=== PATIENT | male | born 2000 | race African-American/Black ===

== ENCOUNTER 2021-05-01 02:27 | Emergency (ER) | payer MEDICAID ==
[~2021-05-01] VITALS: Ht 193 cm; Wt 114.0 kg
[2021-05-01] MEDS ORDERED: ONDANSETRON 4MG ODT PO ONE (03:00)
[2021-05-01] MEDS: ACETAMINOPHEN 325MG TABLET PO ONE ×2 (03:13→03:26)
[2021-05-01] MEDS ORDERED: SODIUM CHLORIDE 0.9% 1,000 ML IV ONE (04:15)
[2021-05-01 04:37] LABS: HEMATOCRIT. 43.5 % (42.0-52.0); HEMOGLOBIN. 14.5 g/dL (14.0-18.0); MEAN CORPUSCULAR HEMOGLOBIN 26.4 pg (28.0-32.0); MEAN CORPUSCULAR VOLUME 79.2 fL (80.0-94.0); MEAN PLATELET VOLUME 8.8 fl (7.4-10.4); PLATELET 225 x1000/uL (130-400); RED BLOOD CELL COUNT 5.49 mill/uL (4.7-6.1); RED CELL DISTRIBUTION WIDTH 13.5 % (11.6-14.6)
[2021-05-01 04:51] LABS: CHLORIDE 106 mEq/L (98-107)
[2021-05-01] MEDS ORDERED: ACET-2708 MT (05:01)
[2021-05-01 05:30] VITALS: BP 121/71
[2021-05-01 05:31] LABS: PLATELET ESTIMATE NORMAL
== END 2021-05-01 05:35 | disposition home or self-care (01) ==
LOC: ER 02:27
DX: B34.9 Viral infection, unspecified (principal); J11.1 Influenza due to unidentified influenza virus with other respiratory manifestations; J45.909 Unspecified asthma, uncomplicated; Z20.822 Contact with and (suspected) exposure to COVID-19
CPT/HCPCS: 36415; 71045; 80048; 85025; 87804; 96360; 99284; C9803; J7030; Q0162; U0003; U0005